=== PATIENT | male | born 1985 | race Caucasian/White ===

== ENCOUNTER 2017-05-12 11:52 | Inpatient (IN) | payer OTHER ==
[~2017-05-12] VITALS: Ht 190.5 cm; Wt 141.4 kg
[~2017-05-12 11:52] MED LIST: CALC625 PO; CEPH500 PO; PERC10TA27 PO; PERI8.6T PO
[2017-05-12] MEDS ORDERED: NEOSTIGMINE 5 MG/5 ML SYRINGE IV PUSH ONE (12:00)
[2017-05-12] MEDS ORDERED: LACTATED RINGER'S 1000 ML INJ 1,000 ML IV ONE (12:00)
[2017-05-12] MEDS ORDERED: SODIUM CHLORIDE 0.9% 20 ML VIAL IV ONE (12:00)
[2017-05-12] MEDS ORDERED: LIDOCAINE HCL 1% PF 5 ML SYRINGE OTHER ONE (12:00)
[2017-05-12] MEDS ORDERED: DEXAMETHASONE SOD PHOS 4 MG/ML VIAL IV ONE (12:00)
[2017-05-12] MEDS ORDERED: GLYCOPYRROLATE 1 MG/5 ML SYRINGE IV PUSH ONE (12:00)
[2017-05-12] MEDS ORDERED: PROPOFOL 200 MG/20 ML AMP IV ONE (12:00)
[2017-05-12] MEDS ORDERED: ONDANSETRON HCL 4 MG/2 ML VIAL IV ONE (12:00)
[2017-05-12] MEDS ORDERED: ROCURONIUM INJ 50 MG/5 ML SYRINGE IV PUSH ONE (12:00)
[2017-05-12] MEDS ORDERED: KETOROLAC TROMETHAMINE 30 MG/ML (IVP) VIAL IV PUSH ONE (12:00)
[2017-05-12] MEDS ORDERED: ceFAZolin INJ 1,000 MG VIAL IV ONE ×2 (12:00→13:50)
[2017-05-12] MEDS ORDERED: ceFAZolin 1,000 MG/NS 100 ML IV SCH ×2 (12:45)
[2017-05-12] MEDS ORDERED: POVIDONE IODINE 5% (ANTISEPSIS KIT) 4 APPLICATIONS EACH NARE PRN (12:45)
[2017-05-12] MEDS ORDERED: CHLORHEXIDINE GLUCONATE 2 % 1 PACK (2 CLOTHS) TOPICAL PRN (12:45)
[2017-05-12] MEDS ORDERED: VANCOMYCIN HCL 1000 MG ON-CALL/NS 250 ML IV SCH ×2 (12:45)
[2017-05-12] MEDS ORDERED: METOPROLOL TARTRATE 25 MG TAB PO PRN (12:45)
[2017-05-12] MEDS ORDERED: ACETAMINOPHEN 1000 MG/100 ML 100 ML IV SCH (12:45)
[2017-05-12] MEDS ORDERED: SODIUM CHLORID 0.9% 500 ML IV PRN (12:45)
[2017-05-12] MEDS ORDERED: LACTATED RINGER'S 1000 ML IV PRN (12:45)
[2017-05-12] MEDS ORDERED: BUPIVACAINE/EPINEPHRINE 0.25% PF 30 ML VIAL ONE (13:24)
[2017-05-12] MEDS ORDERED: MIDAZOLAM HCL 2 MG/2 ML VIAL ONE (15:11)
--- NOTE | 2017-05-12 16:27 | HHI.PR ---
cc: Paulino March MD Immediate Post Op Note Procedure Date: May 12, 2017 Pre Op Diagnosis: Incisional hernia, reducible, symptomatic Post Op Diagnosis: Same Surgeon: Paulino March Rv Servicer(s): YFN [place] Procedure: Laparoscopic lysis of adhesions Laparoscopic incisional hernia repair with mesh Findings: Minimal adhesions, considering previous surgery Complications: None Specimen(s) removed: None Estimated blood loss: 25 ml Anesthesia: General Drains: None IVF (1400 ml) Patient to: PACU Patient Condition: Good Date/Time of Procedure: SEE SURGICAL CARE RECORD Paulino March MD May 12, 2017 16:27
[2017-05-12] MEDS ORDERED: diphenhydrAMINE HCL 25 MG CAP PO PRN (16:30)
[2017-05-12] MEDS ORDERED: Post-op Orders (for Pharmacy) XX ONE (16:30)
[2017-05-12] MEDS ORDERED: NALOXONE HCL 0.4 MG/ML AMP IV PUSH PRN (16:30)
[2017-05-12] MEDS ORDERED: ACETAMINOPHEN/HYDROcodone 325 MG/5 MG TAB PO PRN (16:30)
[2017-05-12] MEDS ORDERED: ONDANSETRON HCL 4 MG/2 ML VIAL IV PUSH PRN (16:30)
[2017-05-12] MEDS ORDERED: *MEPERIDINE 25 MG INJ VIAL PERIprocedural Use ONLY ONE (16:39)
[2017-05-12] MEDS ORDERED: *morphine SULFATE 8 MG/ML PERIprocedure ONLY ONE ×2 (17:10→17:54)
[2017-05-12] MEDS: ACETAMINOPHEN/HYDROcodone 325 MG/5 MG TAB PO PRN ×2 (18:41→22:47)
[2017-05-12] MEDS: SODIUM CHLOR 0.9% 1000 ML INJ 1,000 ML IV SCH (18:43)
[2017-05-12 20:00] VITALS: BP 112/57; PULSE 58; RESP 20; TEMP 97.6; O2SAT 92
[2017-05-12] MEDS ORDERED: DO NOT ADM ANY ANTICOAGULANT DRUGS PRN (21:00)
[2017-05-12 21:08] VITALS: RESP 18
[2017-05-12] MEDS: KETOROLAC TROMETHAMINE 30 MG/ML (IVP) VIAL IVP PRN (21:14)
[2017-05-12] MEDS: MORPHINE SULFATE 30 MG/30 ML PCA IV SCH (21:23)
[2017-05-13] VITALS (11 sets, daily range): BP systolic 120–164; BP diastolic 57–99; PULSE 51–67; RESP 16–20; TEMP 95–96.7; O2SAT 91–97
[2017-05-13] MEDS: PCA - TOTAL MG MORPHINE DELIVERED PER SHIFT SCH ×4 (00:24→22:00)
[2017-05-13] MEDS: KETOROLAC TROMETHAMINE 30 MG/ML (IVP) VIAL IVP PRN ×4 (02:07→19:54)
[2017-05-13] MEDS: MORPHINE SULFATE 30 MG/30 ML PCA IV SCH ×4 (02:14→22:55)
[2017-05-13] MEDS: SODIUM CHLOR 0.9% 1000 ML INJ 1,000 ML IV SCH ×2 (02:15→10:00)
[2017-05-13] MEDS: ACETAMINOPHEN/HYDROcodone 325 MG/5 MG TAB PO PRN ×4 (02:42→20:00)
--- NOTE | 2017-05-13 13:42 | HHI.PR ---
Subjective Subjective Notes Resting in bed No issues overnight Objective Vitals/I&O Vital Signs Date Time Temp Pulse Resp B/P (MAP) Pulse Ox O2 Delivery O2 Flow Rate FiO2 05/13/17 12:00 96.4 55 16 120/75 (90) 93 05/12/17 17:30 Room Air Cardiovascular: Regular Lungs: Clear Abdomen: Other (lap insicions c/d/i; abdomen soft; binder in place ) Extremities: No edema A/P Assessment and Plan 31 year old male POD1 Laparoscopic lysis of adhesions; laparoscopic incisional hernia repair with mesh -Decreased IVF to 75 cc/hr -[facility] HEALTH CLINICIAN/[place]/Toradol for pain control -Heart healthy diet -OOB and mobilize -Lovenox Attending Note - Dr. March Still painful Binder in place, no drainage The exam, history, and the medical decision-making described in the above note were completed with the assistance of the mid-level provider. I reviewed and agree with the findings presented. I attest that I had a [id number] encounter with the patient on the same day, and personally performed and documented my assessment and findings in the medical record. Mary Ellen Washington May 13, 2017 13:42 Paulino March MD May 16, 2017 17:56
[2017-05-13] MEDS ORDERED: ENOXAPARIN SODIUM 40 MG/0.4 ML SYRINGE SQ SCH (15:00)
[2017-05-13] MEDS ORDERED: HYDR-3288 PO (15:48)
--- NOTE | 2017-05-13 20:47 | MP ---
cc: JD MARCH M.D. Corrected Copy: 05/19/17 DATE OF SURGERY: 05/12/2017. OPERATIVE PROCEDURE PERFORMED: 1. Laparoscopic incisional hernia repair Synecor Mesh. 2. Laparoscopic lysis of adhesions. SURGEON: Jd March MD. ANESTHESIA General endotracheal ESTIMATED BLOOD LOSS: 25 mL. FLUIDS: 1400 mL crystalloid. COMPLICATIONS: None. DRAINS: None. SPECIMEN: None. DESCRIPTION OF THE PROCEDURE IN DETAIL: The patient was taken to the operating room after marking the site and was placed on the operating table in the supine position. After an adequate level of general endotracheal anesthesia was achieved, the abdomen was prepped and draped in usual fashion with [place]an over the skin. Time-out was taken confirming the correct patient, site and procedure to be performed. Three 5 mm trocars were placed with the first in the right upper quadrant entering the abdominal cavity under direct vision uneventfully. The abdomen was insufflated and then a left upper quadrant and right lower quadrant trocars were placed as there were minimal adhesions. Adhesions were taken down off of the anterior abdominal wall which consisted entirely of omentum and no small bowel. The harmonic scalpel was used to do this in a bloodless fashion. When this was completed, a fourth 5-mm trocar was placed in the left lower quadrant and entered the abdominal cavity under direct vision uneventfully. The harmonic scalpel was used to take fatty material off the anterior abdominal wall. When this was completed, the edges of the defect were easily delineated. The defect appeared to be an approximately 5x6 cm defect. A 15 x 20 cm piece of Synecor Mesh was utilized. The mesh had four sutures placed on it and it was then rolled up and placed into the left upper quadrant trocar site which had been upsized to a 12 mm balloon trocar. The mesh was unfurled in the abdominal cavity. The mesh was fixed at four points with [place] suture, and following this, the capture tacker was used to tack the mesh all the way around the edges. An additional 4-0 [place] sutures were placed in the edges of the mesh in between the other four sutures utilizing the [place] suture passer. When these had been cinched down, all sites were freed up and the abdomen was desufflated. The trocars were removed and the balloon trocar removed as well. The fascia was closed at the site of the balloon trocar with 0 Vicryl suture in a simple interrupted and [id number] fashion. 4-0 Vicryl was used to close all of the trocar sites at the skin. The remaining local anesthetic was injected into the trocar sites. All trocar sites and the smaller percutaneous puncture sites where the sutures were placed were dressed with Steri-Strips. The patient had a binder applied and he was then extubated and taken back to the recovery room in stable condition. Sponge and needle counts were reported be correct. The patient tolerated the procedure well. MD NORAH Leach/JCNoel /8:05 PM /9:31 AM
[2017-05-14] VITALS: BP 130/65; PULSE 65; RESP 20; TEMP 97.7; O2SAT 94
[2017-05-14] MEDS: ACETAMINOPHEN/HYDROcodone 325 MG/5 MG TAB PO PRN ×3 (00:12→10:35)
[2017-05-14] MEDS: SODIUM CHLOR 0.9% 1000 ML INJ 1,000 ML IV SCH (00:12)
[2017-05-14] MEDS: KETOROLAC TROMETHAMINE 30 MG/ML (IVP) VIAL IVP PRN ×2 (02:29→09:05)
[2017-05-14 04:00] VITALS: BP 123/58; PULSE 53; RESP 20; TEMP 96.5; O2SAT 92
[2017-05-14 06:00] VITALS: RESP 18
[2017-05-14] MEDS: PCA - TOTAL MG MORPHINE DELIVERED PER SHIFT SCH ×2 (06:00→12:24)
[2017-05-14 08:00] VITALS: BP 123/57; PULSE 62; RESP 17; TEMP 95.7; O2SAT 93
--- NOTE | 2017-05-14 10:20 | HHI.PR ---
cc: Jonathan Mendez MD Subjective Subjective Notes DAILY PROGRESS NOTE FOR SURGICAL ATTENDING, DR. JONATHAN MENDEZ Patient tolerating diet Had a bowel movement Pain under control with by mouth medicine Would like to go home today Objective Vitals/I&O Vital Signs Date Time Temp Pulse Resp B/P (MAP) Pulse Ox O2 Delivery O2 Flow Rate FiO2 05/14/17 08:00 95.7 62 17 123/57 (79) 93 05/13/17 17:31 21 05/12/17 17:30 Room Air Cardiovascular: Regular Lungs: Clear Abdomen: Post-op tenderness Extremities: Perfused A/P Assessment and Plan 31 year old male POD2 Laparoscopic lysis of adhesions; laparoscopic incisional hernia repair with mesh -OOB and mobilize -Lovenox Tolerating regular diet Pain under control with by mouth medication 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 JONATHAN MENDEZ I attest that I had a [id number] encounter with the patient on the same day, and personally performed and documented my assessment and findings in the medical record. The following services were provided during this hospital visit: Chart data review, vital sign assessments/reviewing monitor data Review of consultations notes if present. Medication orders/review and/or management Ordering and/or reviewing lab tests Ordering and/or interpreting/reviewing x-rays and/or diagnostic studies Care of the patient and discussion of the patient with the care team Documentation time To help prompt me to consider important information that might be impacting today's encounter and assessment, information from prior notes written by myself or my colleagues may have been "brought forward/copy and pasted" into today's note. Jonathan Mendez MD May 14, 2017 10:20
[2017-05-14] MEDS ORDERED: KETO10 PO (10:27)
[2017-05-14 12:24] VITALS: RESP 16
== END 2017-05-14 12:07 | disposition home or self-care (01) | DRG 355 ==
LOC: HSDC 11:52 → UNDOADMIN 16:27 → N07A 16:27 → HSDC 18:34 → N07A 05-13 11:05 → HSDC 05-14 12:07 → N07A 05-14 12:07 → UNDODISIN 05-14 12:07
PROVIDERS: ADMIT Surgery Trauma Surgery; ATTEND Surgery Trauma Surgery
PROC: 0WUF4JZ Supplement Abdominal Wall with Synthetic Substitute, Percutaneous Endoscopic Approach (ICD-10-PCS; principal; 2017-05-12 13:32)
DX: K43.2 Incisional hernia without obstruction or gangrene (principal); K57.30 Diverticulosis of large intestine without perforation or abscess without bleeding
CPT/HCPCS: 76937; 94150; C1781; J0131; J0690; J1100; J1650; J1885; J2175; J2250; J2270; J2405; J2710; J3010; J3370; J7030; J7050; J7120